=== PATIENT | female | born 1990 | race Caucasian/White ===

== ENCOUNTER 2016-07-08 14:13 | Outpatient (CLI) | payer OTHER | END 2016-07-08 14:14 | disposition home or self-care (01) | DX: Z51.81 Encounter for therapeutic drug level monitoring (principal); E78.6 Lipoprotein deficiency; E03.9 Hypothyroidism, unspecified ==

== ENCOUNTER 2016-08-14 14:20 | Outpatient (CLI) | payer OTHER | END 2016-08-14 14:21 | disposition home or self-care (01) | DX: Z51.81 Encounter for therapeutic drug level monitoring (principal) ==

== ENCOUNTER 2016-08-14 18:43 | Outpatient (CLI) | payer OTHER | END 2016-08-14 18:44 | disposition home or self-care (01) | DX: M79.661 Pain in right lower leg (principal) ==

== ENCOUNTER 2016-10-11 18:41 | Emergency (ER) | payer OTHER ==
[2016-10-11] MEDS ORDERED: KETOROLAC 60 MG/2 ML VIAL IM STA (19:43)
[2016-10-11] MEDS ORDERED: diphenhydrAMINE INJ 50 MG/ML VIAL IM STA (19:44)
[2016-10-11] MEDS ORDERED: PROMETHAZINE 25 MG/1 ML VIAL IM STA (19:44)
[2016-10-11] MEDS ORDERED: diphenhydrAMINE INJ 50 MG/ML VIAL ONE (19:50)
[2016-10-11] MEDS ORDERED: KETOROLAC 30 MG/ML VIAL ONE (19:50)
[2016-10-11] MEDS ORDERED: PROMETHAZINE 25 MG/1 ML VIAL ONE (19:50)
--- NOTE | 2016-10-11 19:56 | ED Physician Documentation ---
History of Present Illness - Stated complaint Stated Complaint: HEAD ACHE/HANDS/FEET SWELL - Chief complaint Chief Complaint: General - History obtained from History obtained from: Patient, Family - History of Present Illness Timing: Today Pain level max: 5 Pain level now: 3 Quality: aching, dull headache Improved by: motrin and tylenol helped slightly Worsened by: motion, light - Additonal information Additional information: Patient is a 25-year-old female who presents to the emergency department complaining of increasing headache today. Has a history of pseudotumor cerebri. She has not been taking her acetazolamide or Lasix at home. Restarted her meds this am at home. Review of Systems Constitutional: denies: Fever, Chills Eyes: denies: Loss of vision, Decreased vision, Photophobia Ears: denies: Ear pain Nose: denies: Rhinorrhea / runny nose, Congestion Respiratory: denies: Cough GI: denies: Abdominal Pain, Nausea, Vomiting, Diarrhea Skin: denies: Rash Musculoskeletal: reports: Extremity swelling (states hands and feet feel swollen ). 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 HEENT: Tonsil/Adenoidectomy - Present Medications Home Medications: Ambulatory Orders Medication Instructions Recorded Confirmed Levothyroxine Sodium [Synthroid] 250 mcg PO DAILY 03/28/16 10/11/16 Metoprolol Succinate 1 tab PO DAILY 03/28/16 10/11/16 buPROPion [Wellbutrin Xl] 1 tab PO DAILY 03/28/16 10/11/16 Acetazolamide 125 mg PO BID 10/11/16 10/11/16 Citalopram [CeleXA] 10 mg PO ONCE 10/11/16 10/11/16 Furosemide 40 mg ORAL DAILY 10/11/16 10/11/16 Potassium Chloride [Klor-Con 10] 20 meq ORAL DAILY 10/11/16 10/11/16 Topiramate [Topamax] 100 mg PO BID 10/11/16 10/11/16 - Allergies Allergies/Adverse Reactions: Allergies Allergy/AdvReac Type Severity Reaction Status Date / Time Sulfa (Sulfonamide Allergy Hives Verified 03/28/16 18:25 Antibiotics) peanut AdvReac Edema Verified 03/28/16 18:39 shellfish derived AdvReac Edema Verified 03/28/16 18:39 - Social History Does the pt smoke?: No Smoking Status: Never smoker Does the pt drink ETOH?: Yes Does the pt have substance abuse?: No - Immunizations Immunizations are current?: Yes - POLST Patient has POLST: No PD ED PE NORMAL - Vitals Vital signs reviewed: Yes - General General: Alert and oriented X 3, No acute distress, Well developed/nourished - HEENT HEENT: PERRL, Ears normal, Moist mucous membranes, Dentition benign, Other ( Ocular US - no papilledema, ON diameter OD - 3.4mm, OS 3.6mm.) - Neck Neck: Supple, no meningeal sign - Cardiac Cardiac: RRR - Respiratory Respiratory: No respiratory distress, Clear bilaterally - Abdomen Abdomen: Soft, Non tender, Non distended - Derm Derm: Warm and dry - Extremities Extremities: Other (2+ B LE and 1+ UE edema) - Neuro Neuro: Alert and oriented X 3, 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 She developed a headache today and restarted her medications. Came here for evaluation. No papilledema on ocular ultrasound. We did discuss a lumbar puncture, but given her lack of papilledema, will hold this at this time. She will return if she worsens. She was treated with Toradol, Phenergan, Benadryl and headache resolved. She is well-appearing, nontoxic. Afebrile. She is scheduled to have a repeat lumbar puncture with her neurologist soon. Patient counseled regarding signs and symptoms for which I believe and urgent re-evaluation would be necessary. Patient with good understanding of and agreement to plan and is comfortable going home at this time This document was made in part using voice recognition software. While efforts are made to proofread this document, sound alike and grammatical errors may occur. Departure - Departure Disposition: 01 Home, Self Care Clinical Impression: Idiopathic intracranial hypertension Headache Qualifiers: Headache type: unspecified Headache chronicity pattern: acute headache Intractability: not intractable Qualified Code(s): R51 - Headache Condition: Good Instructions: ED Cephalgia Unspecified Follow-Up: Paola Brice PA-C [Primary Care Provider] - Within 3 Days Comments: Please restart all of your medications. Return if you worsen or the headache returns. The swelling should improve with the restarting of your medications. Discharge Date/Time: 10/11/16 21:04
[2016-10-11 20:56] VITALS: BP 149/67
== END 2016-10-11 21:04 | disposition home or self-care (01) ==
LOC: ED 18:41
DX: G93.2 Benign intracranial hypertension (principal); T50.2X6A Underdosing of carbonic-anhydrase inhibitors, benzothiadiazides and other diuretics, initial encounter; T50.1X6A Underdosing of loop [high-ceiling] diuretics, initial encounter; Z91.14 Patient's other noncompliance with medication regimen
CPT/HCPCS: 96372; 99283

== ENCOUNTER → 2016-12-04 | Outpatient (CLI) | payer OTHER | LOC: LAB.R 08:00 | PROVIDERS: ATTEND Physician Assistant Medical | DX: K12.0 Recurrent oral aphthae (principal); L03.90 Cellulitis, unspecified | CPT/HCPCS: 87070; 87640 ==

== ENCOUNTER 2016-12-29 19:23 | Emergency (ER) | payer OTHER ==
[2016-12-29 19:29] VITALS: BP 141/88
[2016-12-29] MEDS ORDERED: HYDROcod/ACET 5/325 Prepack 6 PO STA (19:37)
--- NOTE | 2016-12-29 19:40 | ED Physician Documentation ---
PD HPI UPPER EXT INJURY - Stated complaint Stated Complaint: R SHOULDER PX - Chief complaint Chief Complaint: Ext Problem - History obtained from History obtained from: Patient - History of Present Illness Location: Other (Without clear injury she developed atraumatic shoulder pain, she points to the area of the right AC joint. She has lost range of motion, gradually, but at this point basically cannot abduct much at all, she does go up to about 90 though when I ask her. She has not had trouble with that shoulder before. There is no associated fever. 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/Adenoidectomy - Present Medications Home Medications: Ambulatory Orders Medication Instructions Recorded Confirmed Levothyroxine Sodium [Synthroid] 250 mcg PO DAILY 03/28/16 12/29/16 Metoprolol Succinate 1 tab PO DAILY 03/28/16 12/29/16 buPROPion [Wellbutrin Xl] 1 tab PO DAILY 03/28/16 12/29/16 Acetazolamide 125 mg PO BID 10/11/16 12/29/16 Citalopram [CeleXA] 10 mg PO ONCE 10/11/16 12/29/16 Furosemide 40 mg ORAL DAILY 10/11/16 12/29/16 Potassium Chloride [Klor-Con 10] 20 meq ORAL DAILY 10/11/16 12/29/16 Topiramate [Topamax] 100 mg PO BID 10/11/16 12/29/16 HYDROcod/ACETAM 5/325 [[place] 5/325] 1 - 2 ea PO Q6H PRN #15 tablet 12/29/16 - Allergies Allergies/Adverse Reactions: Allergies Allergy/AdvReac Type Severity Reaction Status Date / Time Sulfa (Sulfonamide Allergy Hives Verified 12/29/16 19:29 Antibiotics) peanut AdvReac Edema Verified 12/29/16 19:29 shellfish derived AdvReac Edema Verified 12/29/16 19:29 - Social History Does the pt smoke?: No Smoking Status: Never smoker Does the pt drink ETOH?: No Does the pt have substance abuse?: No - Immunizations Immunizations are current?: Yes - POLST Patient has POLST: No PD ED PE NORMAL - Vitals Vital signs reviewed: Yes - General General: Alert and oriented X 3, No acute distress - Neck Neck: Supple, no meningeal sign, No bony TTP - Extremities Extremities: Other (Tenderness over the right AC joint, she can abduct to 90 actively, does a little better passively, has a lot of pain with forced abduction and supraspinatus testing.) - Neuro Neuro: Alert and oriented X 3, Normal speech - Psych Psych: Normal mood, Normal affect Results - Vitals Vitals: Vital Signs - 24 hr 12/29/16 19:26 Temperature 35.9 C L Heart Rate 86 Respiratory 16 Rate Blood Pressure 141/88 H O2 Saturation 100 Oxygen O2 Source Room air Departure - Departure Disposition: 01 Home, Self Care Clinical Impression: Shoulder pain, right Qualifiers: Chronicity: acute Qualified Code(s): M25.511 - Pain in right shoulder Condition: Good Record reviewed to determine appropriate education?: Yes Instructions: ED Torn Rotator Cuff Prescriptions: HYDROcod/ACETAM 5/325 [[place] 5/325] 1 - 2 ea PO Q6H PRN #15 tablet PRN Reason: Pain Comments: Follow-up with your primary care physician and discuss physical therapy versus orthopedic referral. Return if worse. Your blood pressure was elevated today on check into the emergency department. This does not mean that you have hypertension, it is a common phenomenon to come to the emergency department and have elevated blood pressure. I recommend that she see her primary care physician within the week to have it rechecked when you are feeling better. Do not drink or drive while taking narcotic pain medication. Note that many narcotic pain relievers also contain Tylenol/acetaminophen. Please ensure that your total dose of acetaminophen from all sources does not exceed 3 g (3000 mg) per day. You may get constipated while on this medication. Take a stool softener such as Colace twice a day while you are on it. Also add an [id number] laxative such as senna or MiraLAX on any day that you do not have a bowel movement. If you received a narcotic pain medication or sedative while in the emergency department, do not drive for the next 24 hours.
[2016-12-29] MEDS ORDERED: HYDROcod/ACET 5/325 Prepack 6 PO ONE (20:04)
--- NOTE | 2016-12-29 20:34 | XRAY Preliminary Report ---
Exam: XR Shoulder 3 View RT IMPRESSION: Normal shoulder radiography. [facility] SITE ID: [id number]
--- NOTE | 2016-12-29 20:36 | XRAY Report ---
EXAM: RIGHT SHOULDER RADIOGRAPHY EXAM DATE: 12/29/2016 08:03 PM. CLINICAL HISTORY: Atraumatic shoulder pain. COMPARISON: None. TECHNIQUE: 3 views. FINDINGS: Bones: Normal. No fracture or bone lesion. Joints: The glenohumeral and acromioclavicular joints are normal. Soft tissues: Unremarkable. Clear visualized lung. IMPRESSION: Normal shoulder radiography. [facility] Referring Provider Line: [phone] SITE ID: [id number]
== END 2016-12-29 20:21 | disposition home or self-care (01) ==
LOC: ED 19:23
DX: M25.511 Pain in right shoulder (principal); I10 Essential (primary) hypertension
CPT/HCPCS: 99283

== ENCOUNTER 2017-02-27 14:50 | Outpatient (CLI) | payer OTHER ==
[2017-02-27 19:35] LABS: BASOPHILS % (AUTO) 0.6 %; EOSINOPHILS # (AUTO) 0.2 10^3/uL (0.0-0.7); EOSINOPHILS % (AUTO) 2.2 %; HCT - HEMATOCRIT 40.1 % (37.0-47.0); LYMPHOCYTES # (AUTO) 1.8 10^3/uL (1.5-3.5); LYMPHOCYTES % (AUTO) 24.9 %; MEAN CORPUSCULAR HEMOGLOBIN 26.3 pg (27.0-31.0); MEAN CORPUSCULAR HGB CONC 32.4 g/dL (32.0-36.0); MEAN CORPUSCULAR VOLUME 81.2 fL (81.0-99.0); MEAN PLATELET VOLUME 9.7 fL (7.9-10.8); MONOCYTES # (AUTO) 0.2 10^3/uL (0.0-1.0); NEUTROPHILS % (AUTO) 69.3 %; NUCLEATED RED BLOOD CELLS AUTO 0.1 /100WBC; RED BLOOD COUNT 4.94 10^6/uL (4.20-5.40); RED CELL DISTRIBUTION WIDTH 15.1 % (12.0-15.0); UNCORRECTED WHITE BLOOD COUNT 7.2 x10^3/uL; WHITE BLOOD COUNT 7.2 x10^3/uL (4.8-10.8)
[2017-02-27 19:38] LABS: ALBUMIN/GLOBULIN RATIO 1.1 (1.0-2.2); BILIRUBIN,TOTAL 0.6 mg/dL (0.2-1.0); BUN - BLOOD UREA NITROGEN 13 mg/dL (6-20); CALCIUM 8.8 mg/dL (8.5-10.3); CARBON DIOXIDE - CO2 20 mmol/L (21-32); CHLORIDE 108 mmol/L (101-111); CREATININE 0.8 mg/dL (0.4-1.0); GFR - MDRD 85 (>89); GLUCOSE 134 mg/dL (70-100); IRON 35 ug/dL (28-170); POTASSIUM 3.5 mmol/L (3.5-5.0); SODIUM 137 mmol/L (135-145); TOTAL IRON BINDING CAPACITY 307 ug/dL (250-450); TOTAL PROTEIN 7.4 g/dL (6.7-8.2); TRANSFERRIN 219 mg/dL (192-382)
[2017-02-27 20:34] LABS: THYROID STIMULATING HORMONE 0.72 uIU/mL (0.34-5.60)
[2017-02-27 20:40] LABS: FERRITIN 39.1 ng/mL (11.0-306.8)
== END 2017-02-27 14:51 ==
LOC: LAB.WCP 14:50
PROVIDERS: ATTEND Physician Assistant Medical
DX: R53.83 Other fatigue (principal); E03.9 Hypothyroidism, unspecified
CPT/HCPCS: 36415; 80050; 82306; 82607; 82728; 83540; 84466

== ENCOUNTER 2017-06-13 08:00 | Outpatient (CLI) | payer OTHER ==
[2017-06-13 19:05] LABS: BASOPHILS # (AUTO) 0.1 10^3/uL (0.0-0.1); BASOPHILS % (AUTO) 0.9 %; EOSINOPHILS # (AUTO) 0.2 10^3/uL (0.0-0.7); EOSINOPHILS % (AUTO) 2.1 %; HGB - HEMOGLOBIN 13.6 g/dL (12.0-16.0); LYMPHOCYTES # (AUTO) 2.5 10^3/uL (1.5-3.5); LYMPHOCYTES % (AUTO) 27.3 %; MEAN CORPUSCULAR HEMOGLOBIN 26.7 pg (27.0-31.0); MEAN CORPUSCULAR HGB CONC 32.5 g/dL (32.0-36.0); MEAN CORPUSCULAR VOLUME 82.2 fL (81.0-99.0); MEAN PLATELET VOLUME 9.5 fL (7.9-10.8); MONOCYTES # (AUTO) 0.5 10^3/uL (0.0-1.0); MONOCYTES % (AUTO) 5.9 %; NEUTROPHILS # (AUTO) 5.8 10^3/uL (1.5-6.6); NEUTROPHILS % (AUTO) 63.8 %; PLT - PLATELET COUNT 223 10^3/uL (130-450); RED BLOOD COUNT 5.11 10^6/uL (4.20-5.40); RED CELL DISTRIBUTION WIDTH 14.4 % (12.0-15.0); WHITE BLOOD COUNT 9.1 x10^3/uL (4.8-10.8)
[2017-06-13 19:10] LABS: HB2 TOTAL 14.9 g/dL; HEMOGLOBIN A1C 0.59 g/dL; HEMOGLOBIN A1C % 5.8 % (4.6-6.2)
[2017-06-13 19:20] LABS: ALBUMIN 4.1 g/dL (3.2-5.5); ALBUMIN/GLOBULIN RATIO 1.2 (1.0-2.2); ALKALINE PHOSPHATASE 46 IU/L (42-121); ALT ALANINE AMINOTRANSFERASE 25 IU/L (10-60); AST ASPARTATE AMINOTRANSFERASE 20 IU/L (10-42); BILIRUBIN,TOTAL 0.5 mg/dL (0.2-1.0); BUN - BLOOD UREA NITROGEN 12 mg/dL (6-20); CALCIUM 8.8 mg/dL (8.5-10.3); CARBON DIOXIDE - CO2 19 mmol/L (21-32); CHLORIDE 112 mmol/L (101-111); CHOL/HDL RATIO 4.7 (<4.4); CHOLESTEROL 147 mg/dL; CREATININE 0.6 mg/dL (0.4-1.0); GFR - MDRD 119 (>89); GLUCOSE 112 mg/dL (70-100); HDL CHOLESTEROL 31 mg/dL; LDL CHOLESTEROL,CALCULATED 75 mg/dL; LDL/HDL RATIO 2.4 (<4.4); SODIUM 135 mmol/L (135-145); TOTAL PROTEIN 7.5 g/dL (6.7-8.2); VLDL CHOLESTEROL 41 mg/dL
[2017-06-13 19:21] LABS: THYROID STIMULATING HORMONE 0.15 uIU/mL (0.34-5.60)
[2017-06-13 19:23] LABS: FREE T4 (FREE THYROXINE) 1.18 ng/dL (0.58-1.64)
== END 2017-06-13 08:01 | disposition home or self-care (01) ==
LOC: LAB.WCP 08:00
PROVIDERS: ATTEND Physician Assistant Medical
DX: Z51.81 Encounter for therapeutic drug level monitoring (principal); E78.6 Lipoprotein deficiency; R73.9 Hyperglycemia, unspecified; E03.9 Hypothyroidism, unspecified
CPT/HCPCS: 36415; 80050; 80061; 83036; 84439

== ENCOUNTER 2017-06-30 08:00 | Outpatient (CLI) | payer OTHER | END 2017-06-30 08:01 | disposition home or self-care (01) | LOC: LAB.WCP 08:00 | PROVIDERS: ATTEND Physician Assistant Medical | DX: R07.9 Chest pain, unspecified (principal) | CPT/HCPCS: 36415; 84484; 85379 ==

== ENCOUNTER 2017-07-05 16:28 | Emergency (ER) | payer OTHER ==
--- NOTE | 2017-07-05 16:37 | ED Physician Documentation ---
PD HPI CHEST PAIN - Stated complaint Stated Complaint: SOA/CHEST TIGHTNESS/CONGESTION - History obtained from History obtained from: Patient - History of Present Illness Timing - onset: Other (Head congestion associated with fevers and myalgias since yesterday and chest pain today that is tightness and worse if she takes a deep breath and she does have a cough with it. Fever was 102 Last night and 101 this morning.) Review of Systems Constitutional: reports: Fever, Chills, Myalgias, Fatigue Ears: denies: Ear pain Nose: reports: Rhinorrhea / runny nose, Congestion, Sinus pressure / pain Throat: denies: Sore throat Cardiac: reports: Chest pain / pressure. 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/Adenoidectomy - Present Medications Home Medications: Ambulatory Orders Medication Instructions Recorded Confirmed Levothyroxine Sodium [Synthroid] 250 mcg PO DAILY 03/28/16 12/29/16 Metoprolol Succinate 1 tab PO DAILY 03/28/16 12/29/16 buPROPion [Wellbutrin Xl] 1 tab PO DAILY 03/28/16 12/29/16 Citalopram [CeleXA] 10 mg PO ONCE 10/11/16 12/29/16 Furosemide 40 mg ORAL DAILY 10/11/16 12/29/16 Potassium Chloride [Klor-Con 10] 20 meq ORAL DAILY 10/11/16 12/29/16 Topiramate [Topamax] 100 mg PO BID 10/11/16 12/29/16 acetaZOLAMIDE [Acetazolamide] 125 mg PO BID 10/11/16 12/29/16 HYDROcod/ACETAM 5/325 [[place] 5/325] 1 - 2 ea PO Q6H PRN #15 tablet 12/29/16 guaiFENesin/CODEINE [Robitussin AC] 5 - 10 ml PO Q6H PRN #120 ml 07/05/17 - Allergies Allergies/Adverse Reactions: Allergies Allergy/AdvReac Type Severity Reaction Status Date / Time Sulfa (Sulfonamide Allergy Hives Verified 12/29/16 19:29 Antibiotics) peanut AdvReac Edema Verified 12/29/16 19:29 shellfish derived AdvReac Edema Verified 12/29/16 19:29 - Social History Does the pt smoke?: No Smoking Status: Never smoker Does the pt drink ETOH?: No Does the pt have substance abuse?: No - Immunizations Immunizations are current?: Yes - POLST Patient has POLST: No PD ED PE NORMAL - Vitals Vital signs reviewed: Yes - General General: Alert and oriented X 3, No acute distress - HEENT HEENT: PERRL, EOMI, Ears normal, Pharynx benign - Neck Neck: Supple, no meningeal sign, No bony TTP - Cardiac Cardiac: RRR, No murmur - Respiratory Respiratory: No respiratory distress, Clear bilaterally - Abdomen Abdomen: Soft, Non tender - Back Back: No CVA TTP, No spinal TTP - Extremities Extremities: No edema, No calf tenderness / cord - Neuro Neuro: Alert and oriented X 3, Normal speech - Psych Psych: Normal mood, Normal affect Results - Vitals Vitals: Vital Signs - 24 hr 07/05/17 16:32 Temperature 36.5 C Heart Rate 91 Respiratory 18 Rate Blood Pressure 148/85 H O2 Saturation 94 Oxygen O2 Source Room air - EKG (time done) 1640 Rate: Rate (enter#) (85) Rhythm: NSR [place]: Normal Intervals: Normal [place] QRS: Normal Ischemia: Normal ST segments Computer interpretation: Disagree with computer (computer reads a-fib but it is NSR with some artifact) - Labs Labs: Laboratory Tests 07/05/17 17:13 Influenza A (Rapid) Negative Influenza B (Rapid) Negative Influenza Types A,B Ag - - Rads (name of study) 2v chest Radiology: EMP read contemporaneously (NAD) PD MEDICAL DECISION MAKING - ED course ED course: 26-year-old woman with what seems to be a viral syndrome with coughing and sneezing. No objective evidence of severe illness, vital signs are unremarkable and her chest x-ray and flu swab are negative. She declined pain medication but wanted something for the cough. Departure - Departure Disposition: 01 Home, Self Care Clinical Impression: Upper respiratory tract infection Qualifiers: URI type: unspecified viral URI Qualified Code(s): J06.9 - Acute upper respiratory infection, unspecified Condition: Good Record reviewed to determine appropriate education?: Yes Instructions: ED Viral Syndrome Prescriptions: guaiFENesin/CODEINE [Robitussin AC] 5 - 10 ml PO Q6H PRN #120 ml PRN Reason: Cough Comments: Call your doctor to arrange a follow-up appointment, make the next available appointment. In the interim, return anytime if worse or if new symptoms develop.
--- NOTE | 2017-07-05 17:23 | XRAY Preliminary Report ---
Exam: XR CHEST 2 VIEW X-RAY IMPRESSION: Negative chest. [facility] SITE ID: [id number]
--- NOTE | 2017-07-05 17:24 | XRAY Report ---
EXAM: CHEST RADIOGRAPHY EXAM DATE: 07/05/2017 05:12 PM. CLINICAL HISTORY: Cough fever, chest pain. COMPARISON: 06/30/2017. TECHNIQUE: 2 views. FINDINGS: Lungs/Pleura: No focal opacities evident. No pleural effusion. No pneumothorax. Normal volumes. Mediastinum: Heart and mediastinal contours are unremarkable. Other: None. IMPRESSION: Negative chest. [facility] Referring Provider Line: [phone] SITE ID: [id number]
[2017-07-05] MEDS ORDERED: guaiFENesin/CODEINE 5 ML UDC PO STA (17:59)
[2017-07-05 18:05] VITALS: BP 127/74
== END 2017-07-05 18:10 | disposition home or self-care (01) ==
LOC: ED 16:28
DX: J06.9 Acute upper respiratory infection, unspecified (principal); I10 Essential (primary) hypertension; E03.9 Hypothyroidism, unspecified
CPT/HCPCS: 71046; 87275; 87276; 93005; 99283; A9270

== ENCOUNTER 2017-07-30 10:07 | Outpatient (CLI) | payer OTHER ==
[2017-07-30 13:25] LABS: CALCIUM 8.7 mg/dL (8.5-10.3); CREATININE 0.8 mg/dL (0.4-1.0)
== END 2017-07-30 10:08 | disposition home or self-care (01) ==
LOC: LAB.WCP 10:07
PROVIDERS: ATTEND Physician Assistant Medical
DX: Z51.81 Encounter for therapeutic drug level monitoring (principal); Z79.899 Other long term (current) drug therapy
CPT/HCPCS: 36415; 80048

== ENCOUNTER 2017-12-28 01:05 | Emergency (ER) | payer OTHER ==
--- NOTE | 2017-12-28 01:43 | ED Physician Documentation ---
History of Present Illness - Stated complaint Stated Complaint: R LEG SWELLING/PAIN - Chief complaint Chief Complaint: Ext Problem - History obtained from History obtained from: Patient - History of Present Illness Timing: How many days ago (3) Pain level now: 3 Improved by: nothing Worsened by: no exacerbating factors - Additonal information Additional information: patient complains of right lower extremity pain and swelling for the past three days. The day prior ( four days ago ), She completed a two day car trip from [place]. She took an extra dose of Lasix which she usually takes for hypertension, this did not help with the swelling of the right leg. She also notes mild swelling and pain of the right upper extremity. Denies chest pain, denies shortness of breath. 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 - Present Medications Home Medications: Ambulatory Orders Medication Instructions Recorded Confirmed Levothyroxine Sodium [Synthroid] 250 mcg PO DAILY 03/28/16 12/29/16 Metoprolol Succinate 1 tab PO DAILY 03/28/16 12/29/16 buPROPion [Wellbutrin Xl] 1 tab PO DAILY 03/28/16 12/29/16 Citalopram [CeleXA] 10 mg PO ONCE 10/11/16 12/29/16 Furosemide 40 mg ORAL DAILY 10/11/16 12/29/16 Potassium Chloride [Klor-Con 10] 20 meq ORAL DAILY 10/11/16 12/29/16 Topiramate [Topamax] 100 mg PO BID 10/11/16 12/29/16 acetaZOLAMIDE [Acetazolamide] 125 mg PO BID 10/11/16 12/29/16 Lisinopril [Lisinopril] 10 mg PO DAILY 12/28/17 12/28/17 - Allergies Allergies/Adverse Reactions: Allergies Allergy/AdvReac Type Severity Reaction Status Date / Time Sulfa (Sulfonamide Allergy Hives Verified 12/28/17 01:13 Antibiotics) peanut AdvReac Edema Verified 12/28/17 01:13 shellfish derived AdvReac Edema Verified 12/28/17 01:13 - Social History Does the pt smoke?: No Smoking Status: Never smoker Does the pt drink ETOH?: No Does the pt have substance abuse?: No - Immunizations Immunizations are current?: Yes - POLST Patient has POLST: No PD ED PE NORMAL - Vitals Vital signs reviewed: Yes - General General: Alert and oriented X 3, No acute distress, Well developed/nourished - Cardiac Cardiac: RRR, No murmur - Respiratory Respiratory: No respiratory distress, Clear bilaterally - Derm Derm: Normal color, Warm and dry, No rash - Extremities Extremities: No tenderness to palpate, Normal ROM s pain, No edema, No calf tenderness / cord Results - Vitals Vitals: Vital Signs - 24 hr 12/28/17 12/28/17 01:08 02:40 Temperature 36.3 C L Heart Rate 87 88 Respiratory 18 17 Rate Blood Pressure 140/86 H 138/76 H O2 Saturation 100 99 Oxygen O2 Source Room air - Rads (name of study) RLE US Radiology: Prelim report reviewed, See rad report PD MEDICAL DECISION MAKING - ED course Complexity details: reviewed results, re-evaluated patient, considered differential, d/w patient - Sepsis Event Vital Signs: Vital Signs - 24 hr 12/28/17 12/28/17 01:08 02:40 Temperature 36.3 C L Heart Rate 87 88 Respiratory 18 17 Rate Blood Pressure 140/86 H 138/76 H O2 Saturation 100 99 Oxygen O2 Source Room air Departure - Departure Disposition: 01 Home, Self Care Clinical Impression: Peripheral edema Condition: Good Instructions: ED Leg Swelling Unilateral Follow-Up: Ira Baer PA-C [Primary Care Provider] - (2-3 days if symptoms persist) Discharge Date/Time: 12/28/17 03:39
[2017-12-28 02:42] VITALS: BP 138/76
--- NOTE | 2017-12-28 03:12 | Ultrasound Report ---
Procedure Date: 12/28/2017 Accession Number: [id number] / [id number] Procedure: US - Duplex Ext Veins Right CPT Code: FULL RESULT: EXAM: RIGHT LOWER EXTREMITY VENOUS ULTRASOUND EXAM DATE: 12/28/2017 03:06 AM. CLINICAL HISTORY: Pain, swelling. COMPARISON: DUPLEX EXT VEINS RIGHT 08/14/2016. TECHNIQUE: Real-time sonographic vascular imaging was performed by the land development manager through the lower extremity utilizing both color-flow and Doppler spectral analysis. Multiple marketing representative static images were saved for review. FINDINGS: Common Femoral Vein (CFV): Normal. CFV-GSV Junction: Normal. Profunda Femoral Vein (PFV): Normal. Femoral Vein (FV) Prox: Normal. Femoral Vein (FV) Mid: Normal. Femoral Vein (FV) Dist: Normal. Popliteal Vein: Normal. Posterior Tibial Veins: Normal. Peroneal Veins: Normal. Other: None. IMPRESSION: No evidence for deep venous thrombosis. [facility]
== END 2017-12-28 03:39 | disposition home or self-care (01) ==
LOC: ED 01:05
DX: R60.0 Localized edema (principal); I10 Essential (primary) hypertension; E03.9 Hypothyroidism, unspecified
CPT/HCPCS: 99283

== ENCOUNTER 2018-03-02 08:00 | Outpatient (CLI) | payer OTHER | END 2018-03-02 08:01 | disposition home or self-care (01) | LOC: LAB.R 08:00 | PROVIDERS: ATTEND Physician Assistant | DX: N89.8 Other specified noninflammatory disorders of vagina (principal) | CPT/HCPCS: 87480; 87510; 87660 ==

== ENCOUNTER 2018-03-04 14:02 | Outpatient (CLI) | payer OTHER ==
[2018-03-04 18:54] LABS: BASOPHILS % (AUTO) 0.4 %; EOSINOPHILS # (AUTO) 0.1 10^3/uL (0.0-0.7); EOSINOPHILS % (AUTO) 1.9 %; HGB - HEMOGLOBIN 12.9 g/dL (12.0-16.0); LYMPHOCYTES # (AUTO) 1.8 10^3/uL (1.5-3.5); LYMPHOCYTES % (AUTO) 25.9 %; MEAN CORPUSCULAR HEMOGLOBIN 27.9 pg (27.0-31.0); MEAN CORPUSCULAR HGB CONC 33.3 g/dL (32.0-36.0); MEAN CORPUSCULAR VOLUME 83.7 fL (81.0-99.0); MEAN PLATELET VOLUME 9.2 fL (7.9-10.8); MONOCYTES # (AUTO) 0.3 10^3/uL (0.0-1.0); MONOCYTES % (AUTO) 4.9 %; NEUTROPHILS # (AUTO) 4.8 10^3/uL (1.5-6.6); NEUTROPHILS % (AUTO) 66.9 %; PLT - PLATELET COUNT 235 10^3/uL (130-450); RED BLOOD COUNT 4.62 10^6/uL (4.20-5.40); RED CELL DISTRIBUTION WIDTH 14.8 % (12.0-15.0); WHITE BLOOD COUNT 7.1 x10^3/uL (4.8-10.8)
[2018-03-04 19:15] LABS: ALBUMIN 3.5 g/dL (3.2-5.5); ALBUMIN/GLOBULIN RATIO 1.3 (1.0-2.2); ALKALINE PHOSPHATASE 43 IU/L (42-121); ALT ALANINE AMINOTRANSFERASE 20 IU/L (10-60); AST ASPARTATE AMINOTRANSFERASE 22 IU/L (10-42); BILIRUBIN,TOTAL 0.6 mg/dL (0.2-1.0); BUN - BLOOD UREA NITROGEN 9 mg/dL (6-20); CALCIUM 8.8 mg/dL (8.5-10.3); CARBON DIOXIDE - CO2 23 mmol/L (21-32); CHLORIDE 108 mmol/L (101-111); CHOL/HDL RATIO 4.5 (<4.4); CHOLESTEROL 147 mg/dL; CREATININE 0.5 mg/dL (0.4-1.0); GFR - MDRD 146 (>89); GLUCOSE 107 mg/dL (70-100); HDL CHOLESTEROL 33 mg/dL; LDL CHOLESTEROL,CALCULATED 92 mg/dL; LDL/HDL RATIO 2.8 (<4.4); SODIUM 138 mmol/L (135-145); TOTAL PROTEIN 6.2 g/dL (6.7-8.2); VLDL CHOLESTEROL 22 mg/dL
[2018-03-04 19:20] LABS: HB2 TOTAL 13.5 g/dL; HEMOGLOBIN A1C 0.55 g/dL; HEMOGLOBIN A1C % 5.9 % (4.6-6.2); THYROID STIMULATING HORMONE 1.13 uIU/mL (0.34-5.60)
[2018-03-04 19:22] LABS: FREE T4 (FREE THYROXINE) 1.02 ng/dL (0.58-1.64)
== END 2018-03-04 14:03 | disposition home or self-care (01) ==
LOC: LAB.WCP 14:02
PROVIDERS: ATTEND Physician Assistant
DX: Z79.899 Other long term (current) drug therapy (principal); E78.6 Lipoprotein deficiency; R73.9 Hyperglycemia, unspecified; E03.9 Hypothyroidism, unspecified; N89.8 Other specified noninflammatory disorders of vagina
CPT/HCPCS: 36415; 80053; 80061; 82306; 82607; 83036; 83721; 84439; 84443; 85025